=== PATIENT | male | born 1945 | race Caucasian/White ===

== ENCOUNTER → 2016-08-16 | Outpatient (CLI) | payer MEDICARE ==
[~2016-08-16] MED LIST: ASPI-110 PO; ASPI1TAB69 PO; COLA100C PO; COLA100C3 PO; FISH300C PO; LISI-515 PO; LISI10TA3 PO; LOVA20TA PO; MULT-65 PO; MULT1TAB85 PO; TERA2CAP3 PO
[2016-08-16 09:12] LABS: HEMATOCRIT 33.2 % (39.0-51.0); MEAN CELL VOLUME 81.1 FL (80.0-100.0); MEAN CORPUSCULAR HGB CONC 33.4 % (32.0-36.0); PLATELET COUNT 448 TH/MM3 (150-450); RED BLOOD COUNT 4.09 MIL/MM3 (4.50-5.90); RED CELL DISTRIBUTION WIDTH 14.2 % (11.6-17.2); REVIEW FLAG FINAL; WHITE BLOOD COUNT 11.6 TH/MM3 (4.0-11.0)
[2016-08-16 09:21] LABS: APTT (PATIENT) 28.7 SEC (24.3-30.1); PROTHROMBIN TIME - PATIENT 10.8 SEC (9.8-11.6)
[2016-08-16 09:29] LABS: BICARBONATE 32.1 MEQ/L (21.0-32.0); POTASSIUM 3.9 MEQ/L (3.5-5.1)
--- NOTE | 2016-08-17 16:13 | EKG ---
Date Performed: 08/16/2016 Time Performed: 08:59:02 PTAGE: 71 years EKG: Sinus rhythm NORMAL ECG SINCE PRIOR TRACING HEART RATE IS SLIGHTLY FASTER. PREVIOUS TRACING : 11/17/2010 21.50 DOCTOR: Tuan Castro Interpretating Date/Time 08/17/2016 16:12:25
== END ==
LOC: CPRE 08:37
PROVIDERS: ATTEND Internal Medicine
DX: Z01.810 Encounter for preprocedural cardiovascular examination (principal); Z01.812 Encounter for preprocedural laboratory examination; R91.8 Other nonspecific abnormal finding of lung field
CPT/HCPCS: 36415; 80048; 85027; 85610; 85730; 93005

== ENCOUNTER → 2016-08-18 | Day surgery (SDC) | payer MEDICARE ==
--- NOTE | 2016-08-14 13:09 | MB ---
cc: ZULMA WEEKS R. STEVEN DATE OF CONSULTATION 08/14/2016 REASON FOR CONSULTATION Outpatient bronchoscopy scheduled for this Sunday. HISTORY Mr. Kenyon is a 71-year-old white male who has had a cough for several months that did not respond initially to antibiotics so a chest x-ray was taken and he had a left lower lobe infiltrate. Subsequently a CT scan was done and he has a mass-like consolidation in the left lower lobe with loss of the left lower lobe bronchus, probably obstruction. Chronic pneumonia or neoplasm is suspected. The patient has had a persistent cough. There is minimal sputum production. No pain and no hemoptysis. He does have mild shortness of breath. He was a former smoker of about 40-50 pack-years. He quit smoking 10 years ago. He has had pneumonia in the past but the last time was back in the 1960s when he was in the . No prior history of known COPD, although he does have mild dyspnea on exertion and was quite a heavy smoker. 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 PAST MEDICAL HISTORY 1. Hypertension. 2. Hyperlipidemia. 3. Hernia repair. 4. Cholecystectomy. No prior cardiovascular history. He is not diabetic. MEDICATIONS 1. Lisinopril. 1. Terazosin. 2. Lovastatin 3. Aspirin 81 mg. 4. Cough medicine with codeine p.r.n. ALLERGIES None known. FAMILY HISTORY Father of malignancy in his 60s. Mother had pneumonia at 87, lost a sister to alcoholism, one alive in good health and two children in good health. SOCIAL HISTORY Originally from [place]. 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 Smoking noted. Alcohol none. Animals none. Lives with a female friend. REVIEW OF SYSTEMS Weight has been stable. Appetite fair. No visual complaints. No anginal chest pain or chronic edema. No bone pain or disabling arthritis. PHYSICAL EXAMINATION VITAL SIGNS: Blood pressure 124/58, pulse 60, temp is 97, respiratory rate 18, sat 97% on room air. HEENT: Sclerae anicteric. Pharynx is clear. NECK: Neck veins are flat. No adenopathy in the neck or supraclavicular region. CHEST: Some diminished breath sounds at the left base with a focal wheeze but no congestion. No rhonchi. No basilar rales. Regular rhythm. No harsh murmur. No audible S3. EXTREMITIES: No peripheral edema, cyanosis or clubbing. DISCUSSION Mr. Kenyon presents with a longstanding smoking history and now an abnormal CT scan suspicious for a left lower lobe malignancy. I have suggested proceeding with a diagnostic bronchoscopy. I have explained the procedure to him in simple terms so that he understands what it involves as well as potential for complications including an anesthetic risk and risk of biopsy including although not limited to bleeding or pneumothorax. He also recognizes that the procedure is not 100% effective at diagnosis and further procedures could be necessary. We have stopped his aspirin. We will try to schedule this later this week. The patient is agreeable to proceed after thoroughly reviewing it. Further diagnostic and/or therapeutic intervention will depend on the results of this study. R. MD KAMERON Erwin/JOSE LUIS /10:40 AM /1:03 PM
[~2016-08-18] VITALS: Ht 185.4 cm; Wt 78.7 kg
[~2016-08-18] MED LIST changes: +*RESP: ALBUTEROL 2.5 MG/3 ML NEB (PRN) PERIprocedural Use ONLY NEB ONE; -ASPI1TAB69 PO; +CHLORHEXIDINE GLUCONATE 2 % 1 PACK (2 CLOTHS) TOPICAL PRN; -COLA100C3 PO; +DEXAMETHASONE SOD PHOS 4 MG/ML VIAL ONE; +DO NOT ADM ANY ANTICOAGULANT DRUGS PRN; +EPINEPHrine HCL (1:1000) 1 MG/ML VIAL ONE; +FAMOTIDINE 20 MG/2 ML VIAL ONE; +INSULIN HUMAN REGULAR 1,000 UNITS/10 ML VIAL SQ PRN; +LACTATED RINGER'S 1000 ML IV PRN; +LIDOCAINE HCL 2% 50 ML VIAL ONE; +LIDOCAINE HCL 4% PF 5 ML AMP ONE; +LIDOCAINE VISCOUS 2% SOLN 15 ML UDC ONE; -LISI10TA3 PO; +METOPROLOL TARTRATE 25 MG TAB PO PRN; +MIDAZOLAM HCL 2 MG/2 ML VIAL ONE; -MULT1TAB85 PO; +ONDANSETRON HCL 4 MG/2 ML VIAL IV PUSH ONE; +POVIDONE IODINE 5% (ANTISEPSIS KIT) 4 APPLICATIONS EACH NARE PRN; +PROPOFOL 200 MG/20 ML AMP IV ONE; +RESP: ALBUTEROL 2.5 MG/3 ML NEB (PRN) NEB; +RESP: ALBUTEROL 2.5 MG/3 ML NEB (SCH) INH ONE; +RESP: LIDOCAINE HCL 4% PF 5 ML NEB ONE; +RESP: LIDOCAINE HCL 4% TOPICAL 4 ML KIT NEB NEB ONE; +SODIUM CHLOR 0.9% 1000 ML INJ 1,000 ML IV ONE; +SODIUM CHLORID 0.9% 500 ML IV PRN
[2016-08-18 06:16] VITALS: BP 147/68; PULSE 73; RESP 18; TEMP 98.7; O2SAT 96
--- NOTE | 2016-08-18 09:21 | RADRPT ---
EXAM DATE/TIME: 08/18/2016 08:28 [facility] COMPARISON: CHEST PA & LAT, April 01, 2014, 8:30. INDICATIONS : Post op bronchoscopy. MEDICAL HISTORY : None. SURGICAL HISTORY : None. ENCOUNTER: Initial ACUITY: 1 day PAIN SCORE: 4/10 LOCATION: Bilateral upper chest FINDINGS: A single view of the chest demonstrates the lungs to be symmetrically aerated with some interstitial haziness in the left lower lung field. Lungs are otherwise clear. No pneumothorax. No effusions. Hear t size is normal. Osseous structures are intact. CONCLUSION: 1. Interstitial haziness in the left lower lung field. 2. No effusions. No pneumothorax. Right lung is clear. Sharan Sorto MD on August 18, 2016 at 9:16 Board Certified Radiologist. This report was verified electronically.
[2016-08-18 10:09] VITALS: BP 136/53; PULSE 68; RESP 20; TEMP 97.5; O2SAT 97
--- NOTE | 2016-08-18 22:04 | MR ---
cc: ROLA ESCALANTE,ZULMA Bocanegra MD DATE OF SURGERY 08/18/16 PROCEDURE Bronchoscopy INDICATION Left lower lobe mass. PROCEDURE After informed consent was obtained, the patient underwent diagnostic bronchoscopy with LMA anesthesia. Examination of the larynx was unremarkable. Examination of the trachea down to the level of the mainstem bronchi was unremarkable. Examination of the right main stem bronchus, right upper lobe, middle lobe and lower lobe orifices was entirely unremarkable. Examination of the left main stem bronchus was normal and the takeoff at the left upper lobe and lingula was also normal with no pathology noted. However, the left lower lobe was markedly narrowed but not completely obstructed. There was marked irregularity of the mucosa and several areas of erosion but no actual mass could be identified endobronchially. The left lower lobe was washed extensively, submitted for cultures and cytology. Several brushings were also obtained along with bronchial biopsies. SUMMARY There is marked abnormality of the left lower lobe with narrowing and thickening of the mucosal surface. Multiple specimens were submitted for cultures and cytology and biopsies. He tolerated the procedure well without apparent complication, is transferred to recovery in stable condition. R. Rola Escalante MD RSW/JASON /12:44 PM /9:55 PM
== END | disposition home or self-care (01) ==
LOC: HSDC 05:22
PROVIDERS: ATTEND Internal Medicine
DX: C34.32 Malignant neoplasm of lower lobe, left bronchus or lung (principal); I10 Essential (primary) hypertension; E78.5 Hyperlipidemia, unspecified; R06.02 Shortness of breath; Z87.891 Personal history of nicotine dependence
CPT/HCPCS: 00520; 31623; 31625; 71010; 87015; 87070; 87102; 87116; 87205; 87206; 88112; 88305; 88341; 88342; 94664; J1100; J2250; J2405; J3010; J7120; J7613; J0171

== ENCOUNTER → 2016-08-30 | Outpatient (CLI) | payer MEDICARE ==
[~2016-08-30] MED LIST changes: -*RESP: ALBUTEROL 2.5 MG/3 ML NEB (PRN) PERIprocedural Use ONLY NEB ONE; -CHLORHEXIDINE GLUCONATE 2 % 1 PACK (2 CLOTHS) TOPICAL PRN; -DEXAMETHASONE SOD PHOS 4 MG/ML VIAL ONE; -DO NOT ADM ANY ANTICOAGULANT DRUGS PRN; -EPINEPHrine HCL (1:1000) 1 MG/ML VIAL ONE; -FAMOTIDINE 20 MG/2 ML VIAL ONE; -INSULIN HUMAN REGULAR 1,000 UNITS/10 ML VIAL SQ PRN; -LACTATED RINGER'S 1000 ML IV PRN; -LIDOCAINE HCL 2% 50 ML VIAL ONE; -LIDOCAINE HCL 4% PF 5 ML AMP ONE; -LIDOCAINE VISCOUS 2% SOLN 15 ML UDC ONE; -METOPROLOL TARTRATE 25 MG TAB PO PRN; -MIDAZOLAM HCL 2 MG/2 ML VIAL ONE; -ONDANSETRON HCL 4 MG/2 ML VIAL IV PUSH ONE; -POVIDONE IODINE 5% (ANTISEPSIS KIT) 4 APPLICATIONS EACH NARE PRN; -PROPOFOL 200 MG/20 ML AMP IV ONE; -RESP: ALBUTEROL 2.5 MG/3 ML NEB (PRN) NEB; -RESP: ALBUTEROL 2.5 MG/3 ML NEB (SCH) INH ONE; -RESP: LIDOCAINE HCL 4% PF 5 ML NEB ONE; -RESP: LIDOCAINE HCL 4% TOPICAL 4 ML KIT NEB NEB ONE; -SODIUM CHLOR 0.9% 1000 ML INJ 1,000 ML IV ONE; -SODIUM CHLORID 0.9% 500 ML IV PRN
[2016-08-30 10:07] LABS: BLOOD GAS BASE EXCESS 1.9 mmol/L (-2-2); BLOOD GAS CARBOXYHEMOGLOBIN 1.5 % (0-4); BLOOD GAS HCO3 26 mmol/L (22-26); BLOOD GAS O2 HGB SATURATION 95 % (90-100); BLOOD GAS OXYGEN CONTENT 14.6 Vol % (12.0-20.0); BLOOD GAS PCO2 39 mmHg (38-42); BLOOD GAS PO2 86 mmHg (61-120); BLOOD GAS TOTAL HGB 10.9 G/DL (12.0-16.0); CRITICAL VALUE NO; FIO2 21 %; TEMP CORR TO 98.6
[2016-08-30 10:08] LABS: DRAW SITE RT RADIAL; NUMBER OF ARTERIAL PUNCTURES 1; STAT NO; ULNAR PULSE PRESENT
--- NOTE | 2016-09-01 09:44 | RSPPFT ---
DATE OF PROCEDURE: 08/30/16 COMMENTS: VOLUMES DYNAMIC: FVC moderately reduced; FEV1 severely reduced. STATIC FRC mildly increased; RV severely increased; TLC normal. FLOWS: FEV1% moderately reduced; FEF 25-75 severely reduced. DIFFUSION: Moderately reduced. FLOW VOLUME LOOP: Pattern of variable intrathoracic airways obstruction. IMPRESSION: Severe obstructive ventilatory defect with reduction in diffusion and hyperinflation consistent with emphysema.There is significant improvement post-bronchodilator. Airways resistance is increased.
== END ==
LOC: HRSP 09:02
PROVIDERS: ATTEND Internal Medicine
DX: J44.9 Chronic obstructive pulmonary disease, unspecified (principal)
CPT/HCPCS: 36600; 82805; 94060; 94620; 94726; 94729

== ENCOUNTER 2016-09-18 06:09 | Day surgery (SDC) | payer MEDICARE, OTHER ==
[~2016-09-18] VITALS: Ht 185.4 cm; Wt 78.2 kg
[2016-09-18 06:36] VITALS: BP 162/51; PULSE 63; RESP 20; TEMP 98.1; O2SAT 95
[2016-09-18] MEDS ORDERED: CHLORHEXIDINE GLUCONATE 2 % 1 PACK (2 CLOTHS) TOPICAL SCH (07:00)
[2016-09-18] MEDS ORDERED: ceFAZolin 2 GM PREMIX 50 ML - implanted port/tunneled catheter insertion IV SCH (07:00)
[2016-09-18] MEDS ORDERED: VANCOMYCIN 1000 MG/NS 250 ML - implanted port/tunneled catheter IV SCH ×2 (07:00)
[2016-09-18] MEDS ORDERED: MUPIROCIN 2% OINT 1 APPLIC/GM SYR EACH NARE SCH (07:00)
[2016-09-18] MEDS ORDERED: SODIUM CHLORIDE 0.9% 1000 ML IV SCH (07:00)
[2016-09-18] MEDS ORDERED: POVIDONE IODINE 5% (ANTISEPSIS KIT) 4 APPLICATIONS EACH NARE SCH (07:00)
[2016-09-18 07:21] LABS: AUTOMATED NEUTROPHIL # 8.9 TH/MM3 (1.8-7.7); BASOPHIL % 0.4 % (0.0-2.0); EOSINOPHIL # 0.3 TH/MM3 (0-0.4); EOSINOPHIL % 2.5 % (0.0-4.0); HEMATOCRIT 32.1 % (39.0-51.0); HEMO FLAGS DIFF FINAL; LYMPH % 16.7 % (9.0-44.0); MEAN CELL VOLUME 79.9 FL (80.0-100.0); MEAN CORPUSCULAR HEMOGLOBIN 26.2 PG (27.0-34.0); MEAN CORPUSCULAR HGB CONC 32.7 % (32.0-36.0); MONO % 6.8 % (0.0-8.0); NEUT % 73.6 % (16.0-70.0); PLATELET COUNT 451 TH/MM3 (150-450); RED BLOOD COUNT 4.01 MIL/MM3 (4.50-5.90); RED CELL DISTRIBUTION WIDTH 14.4 % (11.6-17.2); WHITE BLOOD COUNT 12.1 TH/MM3 (4.0-11.0)
[2016-09-18 07:37] LABS: APTT (PATIENT) 27.3 SEC (24.3-30.1); PROTHROMBIN TIME - PATIENT 10.7 SEC (9.8-11.6)
[2016-09-18] MEDS ORDERED: fentaNYL CITRATE 250 MCG/5 ML AMP ONE (07:47)
[2016-09-18] MEDS ORDERED: MIDAZOLAM HCL 5 MG/5 ML VIAL ONE (07:47)
[2016-09-18] MEDS ORDERED: LIDOCAINE 1%/EPINEPHrine 1:100,000 SOLN 20 ML VIAL ONE (08:04)
--- NOTE | 2016-09-18 08:53 | PD.RAD ---
Post Procedure Progress Note Pre Procedure Diagnosis: (1) Lung cancer Post Procedure Diagnosis: (1) Lung cancer Procedure Date: Sep 18, 2016 Supervising Radiologist: Steve Bueno Proceduralist/Assist: Donna Solis, RT(R)(CV), Lupe Benites RT(R) Anesthesia: Conscious Sedation Plan of Activity Patient to Unit: ROPU Patient Condition: Good Additional Comments: right IJ port placed See PACS Report for procedural detail/treatment Steve Bueno MD Sep 18, 2016 08:53
[2016-09-18] MEDS ORDERED: SODIUM CHLORIDE 0.9% FLUSH 10 ML FLUSH IVF PRN (09:00)
[2016-09-18 09:05] VITALS: BP 139/60; PULSE 63; RESP 18; TEMP 97.6; O2SAT 97
[2016-09-18 09:20] VITALS: BP 126/52; PULSE 56; RESP 16; O2SAT 97
--- NOTE | 2016-09-18 09:43 | RADRPT ---
EXAM DATE/TIME: 09/18/2016 08:20 [facility] COMPARISON: No previous studies available for comparison. INDICATIONS : Patient with newly diagnosed lung ca. MEDICAL HISTORY : 1. HTN 2. Asthma 3. GERD 4. Ulcer 5. BPH 6. Hyperlipidemia SURGICAL HISTORY : 1. Tonsillectomy 2. Bronchoscopy 3. cholecystectomy 4. Hernia repair 4. colonoscopy ENCOUNTER: Initial ACUITY: 4-6 months PAIN SCORE: 0/10 FLUORO TIME: 0.3 minutes IMAGE SERIES: 0 SEDATION TIME: 30 minutes ACCESS: Right internal jugular vein SEDATION: 1.) 2 mg midazolam (Versed) IV 2.) 100 mcg fentanyl (Sublimaze) IV Prophylactic antibiotics were administered with appropriate pre-procedure timing. Vancomycin within 2 hours of procedure, Ancef (or alternative) within 1 hour of procedure. DEVICE: 1. 8 [place] single lumen Bard Power Port PROCEDURE : 1. Continuous pulse oximetry and EKG monitoring. 2. Intravenous conscious sedation. 3. Ultrasound guidance for venous access. 4. Fluoroscopic guided implantable central venous port placement. The patient was placed supine. The neck was prepped in sterile fashion. Full sterile technique was u sed, including cap, mask, sterile gloves and gown, and a large sterile sheet. Hand hygiene and 2% ch lorhexidine Betadine was utilized per protocol for cutaneous antisepsis with appropriate dry time for site. The skin and subcutaneous tissues were infiltrated with local anesthetic solution. Under direct ultrasound guidance, central venous access was accomplished in the targeted vessel. The ultrasound images depicting access guidance were stored and saved to PACS for permanent record. A s ubcutaneous pocket was created using blunt dissection. The port was introduced to the pocket. The c atheter tubing was fed through a subcutaneous tunnel to the venotomy site. The catheter tubing was c ut to a suitable length and then was introduced through a valved Peel-Away sheath and positioned with catheter tubing tip at the cavo-atrial junction level. The pocket incision was closed with subcutic ular Vicryl suture. Steri-Strips were applied. The port was flushed and locked with heparin solutio n per protocol. Sterile dressing was applied to the site. The patient tolerated the procedure well. Conscious sedation was performed with the prescribed dosages and duration as above in the presence of an independent trained radiology nurse to assist in the monitoring of the patient. EKG and oximetry remained stable throughout the procedure. The patient tolerated the procedure well and there were no complications. The patient was sent to post anesthesia recovery in stable condition. CONCLUSION: Uncomplicated ultrasound and fluoroscopic guided implanted central venous port catheter placement as described in detail above. An 8 [place] Power port was placed. Steve Bueno MD on September 18, 2016 at 9:41 Board Certified Radiologist. This report was verified electronically.
[2016-09-18 09:50] VITALS: BP 126/49; PULSE 57; RESP 18; O2SAT 95
[2016-09-18 10:30] VITALS: BP 114/48; PULSE 66; RESP 18; O2SAT 97
[2016-09-18 11:12] VITALS: BP 115/50; PULSE 64; RESP 18; O2SAT 97
== END 2016-09-18 11:12 | disposition home or self-care (01) ==
LOC: HROP 06:09 → HRIP 06:13 → HROP 11:12
PROVIDERS: ATTEND Internal Medicine Hematology & Oncology
DX: C34.90 Malignant neoplasm of unspecified part of unspecified bronchus or lung (principal); I10 Essential (primary) hypertension; E78.5 Hyperlipidemia, unspecified; J45.909 Unspecified asthma, uncomplicated; K21.9 Gastro-esophageal reflux disease without esophagitis; N40.0 Benign prostatic hyperplasia without lower urinary tract symptoms
CPT/HCPCS: 36561; 76937; 77001; 85025; 85610; 85730; 99152; 99153; C1788; J0690; J1642; J2250; J3010; J3370; J7030; J7050